=== PATIENT | female | born 1980 | race Caucasian/White ===

== ENCOUNTER → 2022-09-13 11:11 | Outpatient (CLI) | payer OTHER, SELFPAY ==
--- NOTE | ~2022-09-13 | US_ITS ---
Pelvic ultrasound. Clinical History: Irregular menses, menorrhagia Technique: Realtime transabdominal and transvaginal scanning of the pelvis was performed. Color flow Doppler and Doppler spectral analysis were performed. Findings: The uterus is anteverted. The endometrial stripe has a thickness of 14 mm. Questionable 1. 3 x 0.9 x 0.8 cm endometrial polyp. Small anterior wall fibroid measures 1.7 cm. The right ovary measures 2.4 x 2.9 x 2.9 cm. No significant right ovarian or adnexal mass is seen. The left ovary measures 3.2 x 3.1 x 3.1 cm. No significant left ovarian or adnexal mass is seen. There is no evidence of free fluid in the cul de sac. Impression: Questionable 1.3 cm endometrial polyp. Consider sonohysterogram and/or hysteroscopy for further evalu ation. Small uterine fibroid, as detailed above. Reviewed, dictated and finalized at [facility]. PROCESS ENGINEER Impression: Questionable 1.3 cm endometrial polyp. Consider sonohysterogram and/or hysteros copy for further evaluation. Small uterine fibroid, as detailed above.
== END ==
PROVIDERS: PCP Emergency Medicine; Visit Provider Emergency Medicine
DX: N92.6 Irregular menstruation, unspecified (principal)
CPT/HCPCS: 76830; 76856

== ENCOUNTER → 2022-09-25 11:48 | Outpatient (CLI) | payer OTHER, SELFPAY ==
--- NOTE | ~2022-09-25 | MM_ITS ---
EXAMINATION: MM screening lisa BI w sherri HISTORY: Screening mammogram TECHNIQUE: Craniocaudal and mediolateral oblique 3-D tomosynthesis images were obtained and synthetic 2-D images were generated. CAD analysis was submitted and interpreted. COMPARISON: None, baseline BREAST PARENCHYMAL COMPOSITION: There are scattered areas of fibroglandular density. FINDINGS: RIGHT BREAST: There is a possible mass in the anterior third of the lower inner breast near the nippl e. There is also a possible mass in the middle third of the slightly upper, slightly outer breast. LEFT BREAST: No suspicious mass, calcification, or architectural distortion are identified to suggest malignancy. IMPRESSION: 1. Possible right breast masses. 2. Additional mammographic views and possible breast ultrasound are recommended. BI-RADS Category 0: Incomplete: Needs additional imaging evaluation. Reviewed, dictated and finalized at location A. TER PROCESSED FILM IMPRESSION: 1. Possible right breast masses. 2. Additional mammographic views and possible breast ultrasound are recommended . BI-RADS Category 0: Incomplete: Needs additional imaging evaluation.
== END ==
PROVIDERS: PCP Emergency Medicine; Visit Provider Emergency Medicine
DX: Z12.31 Encounter for screening mammogram for malignant neoplasm of breast (principal); R92.8 Other abnormal and inconclusive findings on diagnostic imaging of breast
CPT/HCPCS: 77063; 77067

== ENCOUNTER 2022-10-12 08:12 | Outpatient (CLI) | payer OTHER, SELFPAY ==
--- NOTE | ~2022-10-12 | MMUS_ITS ---
EXAMINATION: MM diagnostic lisa RT w sherri, US breast RT limited HISTORY: Possible right breast masses on screening mammogram TECHNIQUE: Additional 3-D tomosynthesis images of the right breast were performed and synthetic 2-D i mages were generated. CAD analysis was submitted and interpreted. High resolution limited right breas t ultrasound was performed. COMPARISON: 09/25/2019 09/25/2022 FINDINGS: MAMMOGRAPHIC FINDINGS: No definite persistent masses are identified with spot compression views of the right breast. No susp icious calcification or architectural distortion are identified. ULTRASOUND: There is a 5 mm x 3 mm oval, circumscribed, parallel, hypoechoic mass with no posterior features or i nternal vascularity at the 6:00 location near the nipple. A 4 mm cyst is noted at the 11:00 location 2 cm from the nipple. There is also a 2 mm cyst at the 4:00 location 1 cm from the nipple. IMPRESSION: 1. Probably benign mass at the 6:00 location near the nipple on the right breast. 2. Recommend 6 month follow-up right diagnostic mammogram and ultrasound. BI-RADS category 3, probably benign findings. Reviewed, dictated and finalized at location A. ING DEPARTMENT SUPERVISOR IMPRESSION: 1. Probably benign mass at the 6:00 location near the nipple on the right breas t. 2. Recommend 6 month follow-up right diagnostic mammogram and ultrasound. BI-RADS category 3, probably benign findings.
== END 2022-10-12 08:13 ==
LOC: MICIMG 08:13
PROVIDERS: PCP Emergency Medicine; Visit Provider Emergency Medicine
DX: N63.10 Unspecified lump in the right breast, unspecified quadrant (principal)
CPT/HCPCS: 76642; 77061; 77065; G0279

== ENCOUNTER → 2023-04-25 08:42 | Outpatient (CLI) | payer OTHER, SELFPAY ==
--- NOTE | ~2023-04-25 | MMUS_ITS ---
EXAMINATION: MM diagnostic lisa RT w sherri, US breast RT complete HISTORY: Six-month follow-up of probably benign right breast mass at 6:00 near nipple TECHNIQUE: ML, MLO and CC full field and spot CC 3-D tomosynthesis images of the right breast were pe rformed and synthetic 2-D images were generated. CAD analysis was submitted and interpreted. High res olution complete right breast ultrasound examination gluteal 4 quadrants and subareolar area was perf ormed. COMPARISON: 10/12/2022 diagnostic right mammogram and limited right breast ultrasound 09/25/2022 bilateral screening mammogram BREAST PARENCHYMAL COMPOSITION: There are scattered areas of fibroglandular density. FINDINGS: MAMMOGRAPHIC FINDINGS: No suspicious mass or architectural distortion, malignant calcification, skin thickening or retractio n of the right breast or significant new or developing density since 10/12/2022 is detected. ULTRASOUND: 6:00 subareolar area: Circumscribed 2.3 x 3 mm hypoechoic lesion without internal vascularity or post erior shadowing; this is diminished in size since 10/12/2022, consistent with benign process 11:00 2 cm from nipple: Parallel circumscribed hypoechoic 1.9 x 4.2 mm sonolucency with through trans mission, no internal vascularity, likely a small cyst No other significant finding is noted. No suspicious mass or shadowing is detected. IMPRESSION: 1. Benign findings 2. Routine annual mammographic screening is recommended BI-RADS Category 2: Benign finding(s). Reviewed, dictated and finalized at location [facility]. IMPRESSION: 1. Benign findings 2. Routine annual mammographic screening is recommended BI-RADS Category 2: Benign finding(s).
== END ==
PROVIDERS: PCP Emergency Medicine; Visit Provider Emergency Medicine
DX: N63.10 Unspecified lump in the right breast, unspecified quadrant (principal)
CPT/HCPCS: 76641; 77061; 77065; G0279

== ENCOUNTER 2025-03-29 00:27 | Day surgery (SDC) | payer OTHER, SELFPAY ==
[2025-03-05 09:27] VITALS: BMI 28.3
--- OUTSIDE RECORDS SUMMARY | 2025-03-29 00:29 | XMS_ITS | Continuity of Care Document ---
Author Organization [facility] Address [address] [address] [place] [address] Phone Care Team Providers Care Toddler Guide Name Role Phone Mathieu Burch MD Unavailable Unavailable Allergies, Adverse Reactions, Alerts Substance Reaction Status Criticality No Known Allergies Active No Inform ation Medications Medication Instructions Dosage Effective Dates (start - stop) Status Comments Concerta 36 mg tablet,extended release take 1 Tablet by oral route every day in the morning 36 MG - Active Latuda 20 mg tablet take 1 tablet by ora l route every day with food (at least 350 calories) 20 MG - Active Effexor XR 150 mg capsule,extended release take 1 capsule by oral route every day 150 MG - Active Procedures Procedure Date OFFICE/OUTPATIENT VISIT, EST OFFICE/OUTPATIENT VISIT, EST OFFICE/OUTPATIENT VISIT, EST PREV VISIT, EST, AGE 40-64 OFFICE/OUTPATIENT VISIT, EST OFFICE/OUTPATIENT VISIT, EST OFFICE/OUTPATIENT VISIT, EST PREV VISIT, EST, AGE 40-64 OFFICE/OUTPATIENT VISIT, EST OFFICE/OUTPATIENT VISIT, EST OFFICE/OUTPATIENT VISIT, EST OFFICE/OUTPATIENT VISIT, EST OFFICE/OUTPATIENT VISIT, EST OFFICE/OUTPATIENT VISIT, EST OFFICE/OUTPATIENT VISIT, EST OFFICE/OUTPATIENT VISIT, EST OFFICE/OUTPATIENT VISIT, EST OFFICE/OUTPATIENT VISIT, EST PREV VISIT, EST, AGE 40-64 OFFICE/OUTPATIENT VISIT, EST OFFICE/OUTPATIENT VISIT, EST OFFICE/OUTPATIENT VISIT, EST PREV VISIT, EST, AGE 40-64 OFFICE/OUTPATIENT VISIT, EST OFFICE/OUTPATIENT VISIT, EST PREV VISIT, EST, AGE 40-64 OFFICE/OUTPATIENT VISIT, EST OFFICE/OUTPATIENT VISIT, EST PREV VISIT, NEW, AGE 18-39 PREV VISIT, EST, AGE 18-39 Advance Directives Directive Yes / No Effective Date File Name No Information Encounters Encounter Description Practice Location Reason(s) For Visit Diagnoses Date Provider Providers Copied on Encounter OFFICE/OUTPA TIENT VISIT, [facility], [address] [place], [address], tel:[phone] [facility] ADD (chief complaint) flushing1 (chief complaint) Attention deficitIrregular period 5 Marcin Murdock. [address], [facility] [place], [address] , [place]. tel:[phone] Referring Provider: Bernabe Ortiz [facility] [place], [address]. tel:[phone] OFFICE/OUTPA TIENT VISIT, EST [facility], [address] [place], [address], [place] tel:[phone] [facility] ADD (chief complaint) hot flash1 (chief complaint) anxiety1 (chief complaint) Attention deficitGeneralized Anxiety DisorderFlushingIrr egular period 5 Marcin Murdock. [address], [address] [place], [address] , [place]. tel:[phone] Referring Provider: Bernabe Ortiz [facility] [place], [address]. tel:[phone] OFFICE/OUTPA TIENT VISIT, [facility], [address], [place], [place], [address], [place] tel:[phone] [facility] ADD (chief complaint) Attention deficit Dec- 5 Marcin Murdock. [address], [address], [place], [place], [address] , [place]. tel:[phone] Referring Provider: Mathieu Burch, [address], [place], [place], [address]. tel:[phone] PREV VISIT, EST, AGE 40-64 [facility], [address], [place], [place], [address], [place] tel:[phone] [facility] physical (chief complaint) Encounter for general adult medical exam w abnormal findingsAttention deficitGeneralized Anxiety Disorder Nov- 0 5 Marcin Murdock. [address], [address], [place], [place], [address] , [place]. tel:[phone] Referring Provider: Mathieu Burch, [address], [place], [place], [address]. tel:[phone] OFFICE/OUTPA TIENT VISIT, [facility], [address], [place], [place], [address], [place] tel:[phone] [facility] anxiety1 (chief complaint) ADD (chief complaint) Attention deficitGeneralized Anxiety Disorder 4 Marcin Murdock. [address], [address], [place], [place], [address] , [place]. tel:[phone] Referring Provider: Mathieu Burch, [address], [place], [place], [address]. tel:[phone] OFFICE/OUTPA TIENT VISIT, [facility], [address], [place], [place], [address], [place] tel:[phone] [facility] ADD (chief complaint) anxiety1 (chief complaint) sinus1 (chief complaint) Attention deficitGeneralized Anxiety DisorderAcute sinusitisAllergic rhinitis due to pollenEncntr screen mammogram for malignant neoplasm of breast 4 Marcin Murdock. [address], [address], [place], [place], [address] , [place]. tel:[phone] Referring Provider: Mathieu Burch, [address], [place], [place], [address]. tel:[phone] PREV VISIT, EST, AGE 40-64 [facility], [address], [place], [place], [address], [place] [phone] [facility] physical (chief complaint) Encounter for general adult medical examination without abnormal findings 4 Marcin Murdock. [address], [address], [place], [place], [address] , [place]. tel:[phone] Referring Provider: Mathieu Burch, [address], [place], [place], [address]. tel:[phone] OFFICE/OUTPA TIENT VISIT, [facility], [address], [place], [place], [address], [place] tel:[phone] [facility] ADD (chief complaint) Attention deficit 4 Marcin Murdock. [address], [address], [place], [place], [address] , [place]. tel:[phone] Referring Provider: Mathieu Burch, [address], [place], [place], [address]. tel:[phone] OFFICE/OUTPA TIENT VISIT, [facility], [address], [place], [place], [address], [place] [phone] [facility] ADD (chief complaint) anxiety1 (chief complaint) Attention deficitGeneralized Anxiety Disorder 4 Marcin Murdock. [address], [place], [place], [address] , [place]. tel:[phone] Referring Provider: Mathieu Burch [address], [place], [place], [address]. tel:[phone] OFFICE/OUTPA TIENT VISIT, [facility], [address], [place], [address], [place] tel:[phone] [facility] ADD (chief complaint) breast1 (chief complaint) Lump in the right breastAttention deficit 4 Marcin Murdock. [address], [address], [place], [address] , [place]. tel:[phone] Referring Provider: Mathieu Burch [address], [place], [place], [address]. tel:[phone] OFFICE/OUTPA TIENT VISIT, [facility], [address], [place], [place], [address], [place] tel:[phone] [facility] ADD (chief complaint) Attention deficit 3 Marcin Murdock. [address], [address], [place], [place], [address] , [place]. tel:[phone] Referring Provider: Mathieu Burch, [address], [place], [place], [address]. tel:[phone] OFFICE/OUTPA TIENT VISIT, [facility], [address], [place], [address], [place] tel:[phone] [facility] ADD (chief complaint) anxiety1 (chief complaint) Attention deficitGeneralized Anxiety Disorder 3 Marcin Murdock. [address], [place], [place], [address] , [place]. tel:[phone] Referring Provider: Mathieu Burhc [address], [place], [place], [address]. tel:[phone] OFFICE/OUTPA TIENT VISIT, [facility], [address], [place], [place], [address], [place] tel:[phone] [facility] ADD (chief complaint) Attention deficit 3 Marcin Murdock. [address], [address], [place], [address] , [place]. tel:[phone] Referring Provider: Mathieu Burch, [address], [place], [place], [address]. tel:[phone] OFFICE/OUTPA TIENT VISIT, [facility], [address], [place], [place], [address], [place] tel:[phone] [facility] ADD (chief complaint) anxiety1 (chief complaint) breast1 (chief complaint) Attention deficitLump in the right breastGeneralized Anxiety Disorder 3 Marcin Murdock. [address], [address], [place], [address] , [place]. tel:[phone] Referring Provider: Bernabe Ortiz [address], [place], [place], [address]. tel:[phone] OFFICE/OUTPA TIENT VISIT, [facility], [address], [place], [address], [place] tel:[phone] [facility] ADD (chief complaint) breast1 (chief complaint) Attention deficitLump in the right breast 3 Marcin Murdock. [address], [address], [place], [place], [address] , [place]. tel:[phone] Referring Provider: Bernabe Ortiz [address], [place], [place], [address]. tel:[phone] OFFICE/OUTPA TIENT VISIT, [facility], [address], [place], [address], [place] tel:[phone] [facility] ADD (chief complaint) breast nodule1 (chief complaint) anxiety1 (chief complaint) Lump in the right breastAttention deficitGeneralized Anxiety Disorder 3 Marcin Murdock. [address], [place], [place], [address] , [place]. tel:[phone] Referring Provider: Bernabe Ortiz [address], [place], [place], [address]. tel:[phone] OFFICE/OUTPA TIENT VISIT, [facility], [address], [place], [place], [address], [place] tel:[phone] [facility] ADD (chief complaint) Attention deficit 3 Marcin Murdock. [address], [address], [place], [place], [address] , [place]. tel:[phone] Referring Provider: Bernabe Ortiz [address], [place], [place], [address]. tel:[phone] PREV VISIT, EST, AGE 40-64 [facility], [address], [place], [place], [address], [place] tel:[phone] [facility] physical (chief complaint) Encounter for general adult medical exam w abnormal findingsAttention deficitGeneralized Anxiety DisorderLump in the right breastPolyp of endometrium Dec- 3 Marcin Moreira [address], [address], [place], [place], [address] , [place]. tel:[phone] Referring Provider: Bernabe Ortiz [facility] [address], [place], [address]. tel:[phone] OFFICE/OUTPA TIENT VISIT, EST [facility], [address], [place], [place], [address], [place] tel:[phone] [facility] breat nodule1 (chief complaint) acne1 (chief complaint) period1 (chief complaint) Lump in the right breastAcneIrregular periodLeiomyoma of uterus 3 Marcin Moreira [address], [place], [place], [address] , [place]. tel:[phone] Referring Provider: Bernabe Ortiz [address], [place], [place], [address]. tel:[phone] OFFICE/OUTPA TIENT VISIT, EST [facility], [address], [place], [address], [place] tel:[phone] [facility] cyst (chief complaint) weight gain1 (chief complaint) period1 (chief complaint) acne1 (chief complaint) Irregular periodAcneCelluliti s of faceAbnormal weight gainEncounter for ot screening for malignant neoplasm of breast 2 Marcin Murdock. [address], [address], [place], [place], [address] , [place]. [phone] Referring Provider: Mathieu Burch, [address], [place], [place], [address]. tel:[phone] PREV VISIT, EST, AGE 40-64 [facility], [address], [place], [address], [place] tel:[phone] [facility] Physical (chief complaint) Encounter for general adult medical examination without abnormal findings 2 Marcin Murdock. [address], [address], [place], [place], [address] , [place]. [phone] Referring Provider: Bernabe Ortiz [address], [place], [place], [address]. tel:[phone] OFFICE/OUTPA TIENT VISIT, EST [facility], [address], [place], [place], [address], [place] tel:[phone] [facility] UTI1 (chief complaint) Urinary tract infection 1 Marcin Murdock. [address], [address], [place], [place], [address] , [place]. [phone] Referring Provider: Bernabe Ortiz [address], [place], [place], [address]. tel:[phone] OFFICE/OUTPA TIENT VISIT, EST [facility], [address], [place], [place], [address], [place] tel:[phone] [facility] knee pain1 (chief complaint) Pain in right kneeInternal derangement of right knee 0 Marcin Murdock. [address], [address], [place], [place], [address] , [place]. tel:[phone] Referring Provider: Bernabe Ortiz [address], [place], [place], [address]. tel:[phone] PREV VISIT, EST, AGE 40-64 [facility], [address], [place], [place], [address], [place] tel:[phone] [facility] Physical (chief complaint) Encntr for general adult medical exam w/o abnormal findings 0 Marcin Murdock. [address], [address], [place], [place], [address] , [place]. tel:[phone] Referring Provider: Bernabe Ortiz [address], [place], [place], [address]. tel:[phone] OFFICE/OUTPA TIENT VISIT, [facility], [address], [place], [place], [address], [place] tel:[phone] [facility] hermaturia 1 (chief complaint) Abd pain1 (chief complaint) swelling1 (chief complaint) HematuriaAbdominal painEdema Rylan- 3-201 7 Marcin Moreira [address], [address], [place], [place], [address] , [place]. tel:[phone] Referring Provider: Bernabe Ortiz [address], [place], [place], [address]. tel:[phone] OFFICE/OUTPA TIENT VISIT, [facility], [address], [place], [place], [address], [place] tel:[phone] [facility] abd pain1 (chief complaint) GERD w/o esophagitisAbdomina l pain Apr- 0-201 7 Marcin Murdock. [address], [address], [place], [place], [address] , [place]. tel:[phone] Referring Provider: Bernabe Ortiz [address], [place], [place], [address]. tel:[phone] PREV VISIT, NEW, AGE 18-39 [facility], [address], [place], [place], [address], [place] tel:[phone] [facility] Physical (chief complaint) Encntr for general adult medical exam w/o abnormal findings 0-201 6 Marcin Murdock. [address], [address], [place], [place], [address] , [place]. tel:[phone] Referring Provider: Mathieu Burch, [address], [place], [place], [address]. tel:[phone] PREV VISIT, EST, AGE 18-37 [facility], [address], [place], [place], [address], [place] tel:[phone] [facility] Physical (chief complaint) Dietary surveillance and counselingRoutine Medical ExamRoutine Medical Exam 3 Marcin Murdock. [address], [address], [place], [place], [address] , [place]. tel:[phone] Referring Provider: Mathieu Burch, [address], [place], [place], [address]. tel:[phone] Family History Family Member Type Diagnosis Age At Onset Sister Problem (finding) Anxiety Mother Problem (finding) Hypertension Mother Problem (finding) Anxiety Father Problem (finding) Anxiety Payers Payer name Insurance type Covered green party ID Justine stewart(s) Kristine [id number] Social History Type Description Quantity Date Captured Comments Alcohol Use Details No Caffeine Use Details Unknown Tobacco Use Status Ex-cigarette smoker 025 Smoking Status Former smoker Sex Female Vital Signs Date / Time: Height Weight BMI Pulse Rate Blood Pressure Temperature Respiratory Rate Body Surface Area Head Circumference BMI percentile Pulse Ox Inhaled Ox 10:05 AM 64.00 in 166.40 lbs 28.5 6 kg/m eter (2) 70 /min 120/80 mm[Hg] 98.0 F 16 /min Chief Complaint And Reason For Visit From encounter dated '03/15/2025 10:02'. ADD (chief complaint). Description: Patient has ADD. Patient has inattentive type. Patient feels scatterbrained. Patient feel poor focus and difficulty completing tasks. Patient states that Concerta is helping with symptoms. Patient feels more focused. Pt feels more energy. Patient denies any headache, dry mouth, headache, chest pain. Patient denies any appetite loss. flushing1 (chief complaint). Description: Pt has mild hot flash with irregular period her hormone does not suggest menopausal yet Plan Of Treatment Date Type Action Status Goal Tobacco cessation counseling completed Referral Ordered: COLONOSCOPY AND BIOPSY ordered Referral Ordered: MAMMOGRAM, ONE BREAST ordered Referral Ordered: MAMMOGRAM, ONE BREAST Right ordered Referral Ordered: US, PELVIC (NONOBSTETRIC); ordered Referral Ordered: MAMMOGRAM, SCREENING ordered Referral Ordered: Jose M Mendi[facility] : Orthopaedic Surgery (related to Internal derangement of right knee) ordered Referral Ordered: MRI JNT OF LWR EXTRE W/O DYE Right knee ordered Referral Ordered: Jose M Mendi[facility] : Orthopaedic Surgery (related to Encntr for general adult medical exam w/o abnormal findings) ordered Referral Ordered: US EXAM, EXTREMITY Right shoulder ordered Referral Referred To: Jose M Mendiola [address] [place] [address] DR ADAMS [address] [phone] Ordered: Referrals: [facility] : Orthopaedic Surgery. Jose M Mendiola. Evaluate and treat ordered Referral Ordered: CT ABDOMEN&PELVIS W/CONTRAST ordered Referral Ordered: US EXAM, ABDOM, COMPLETE ordered Appointment Priaynka Nickerson BOOKED History Of Present Illness Encounter Date Complaint History Of Prese nt Illness flushing1 Pt has mild hot flash with irregular period her hormone does not suggest menopausal yet ADD Patient has ADD. Patient has inattentive type. Patient feels scatterbrained. Patient feel poor focus and difficulty completing tasks. Patient states that Concerta is helping with symptoms. Patient feels more focused. Pt feels more energy. Patient denies any headache, dry mouth, headache, chest pain. Patient denies any appetite loss. anxiety1 Pt has chronic a nxiety and depression Pt is on Effexor and latuda and doing well Pt denies any suicidal or homicidal thought Pt denies any crying spells hot flash1 Pt has been havi ng hot flashes a lot recently. Pt feels marshall and insomnia Pt is interested in hormone check. Pt does not have period due to IUD ADD Pt has ADD. Pt d oing ok with concerta. Pt doing much better with concerta 36 mg. Pt denies any side effects ADD Patient has ADD. Patient has inattentive type. Patient feels scatterbrained. Patient feel poor focus and difficulty completing tasks. Patient states that Concerta is helping her symptoms but she feels that she needs higher dose. Pt states that the medication wears off around noon time. Patient feels more focused. Pt feels more energy. Patient denies any headache, dry mouth, headache, chest pain. Patient denies any appetite loss. physical Pt needs annual physical pt has chronic anxiety and depression with mood swings Pt is seeing psychiatrist and she is on effexor 150 mg and latuda now Pt is off abilify and she is doing ok Pt denies any suicidal or homicidal thought Pt denies any crying spells Pt has not on concerta for 6 months and she has been doing poorly with inability to focus and concentration. Pt also feels very distracted. Pt has not been able to function normally at home. Pt wants to get back on concerta. Pt states that her psychiatrist does not deal with ADD since [place]. ADD Patient has ADD. Patient has inattentive type. Patient feels scatterbrained. Patient feel poor focus and difficulty completing tasks. Patient states that Concerta is helping with symptoms. Patient feels more focused. Pt feels more energy. Patient denies any headache, dry mouth, headache, chest pain. Patient denies any appetite loss. anxiety1 Pt has chronic a nxiety and depression with mood swings .Pt is taking effexor 225 mg and abilify 10 mg daily and hre mood is better .Pt cecy any suicidal or homicidal thought Pt denies any crying spells. sinus1 Pt c/o acute ons et of severe sinus congestion with postnasal drainage and some dry cough and sneezing for several weeks Pt suffers from seasonal allergy. Pt c/o sinus pain Pt denies any fever or sob. Pt denies any sore throat ADD Patient has ADD. Patient has inattentive type. Patient feels scatterbrained. Patient feel poor focus and difficulty completing tasks. Patient states that Adderall is helping with symptoms. Patient feels more focused. Pt feels more energy. Patient denies any headache, dry mouth, headache, chest pain. Patient denies any appetite loss. anxiety1 Pt has chronic a nxiety and depression Pt takes Effexor and abilify and she still feels more depressed lately. Pt denies any suicidal or homicidal thought Pt denies any crying spells Pt increase abilify to 10 mg last month which helped slightly Pt is in the process of find a new psychiatrist. physical Pt needs annual physical pt has chronic anxiety and depression and mood swings. Pt takes effexor and abilify and she has not been doing well pt feels more depressed and more anxious and mood swings and she has been having crying spells Pt denies any suicidal or homicidal thought Pt has ADD pt doing ok with concerta Pt used to see psychiatrist ADD Patient has ADD. Patient has inattentive type. Patient feels scatterbrained. Patient feel poor focus and difficulty completing tasks. Patient states that Concerta is helping with symptoms. Patient feels more focused. Pt feels more energy. Patient denies any headache, dry mouth, headache, chest pain. Patient denies any appetite loss. ADD Patient has ADD. Patient has inattentive type. Patient feels scatterbrained. Patient feel poor focus and difficulty completing tasks. Patient states that concerta is helping with symptoms. Patient feels more focused. Pt feels more energy. Patient denies any headache, dry mouth, headache, chest pain. Patient denies any appetite loss. anxiety1 Pt has chronic a nxiety and depression Pt takes effexor and abilify and doing ok Pt denies any suicidal or homicidal thought Pt denies any crying spells ADD Patient has ADD. Patient has inattentive type. Patient feels scatterbrained. Patient feel poor focus and difficulty completing tasks. Patient states that Concerta is helping with symptoms. Patient feels more focused. Pt feels more energy. Patient denies any headache, dry mouth, headache, chest pain. Patient denies any appetite loss. breast1 pt has history o f benign right breast nodule. Pt denies any breast pain, nodule and redness or warmth or drainage ADD Patient has ADD. Patient has inattentive type. Patient feels scatterbrained. Patient feel poor focus and difficulty completing tasks. Patient states that Concerta is helping with symptoms. Patient feels more focused. Pt feels more energy. Patient denies any headache, dry mouth, headache, chest pain. Patient denies any appetite loss. anxiety1 Pt has chronic a nxiety and depression and she is doing well with effexor and abilify Pt denies any suicidal or homicidal thought Pt denies any crying spells ADD Patient has ADD. Patient has inattentive type. Patient feels scatterbrained. Patient feel poor focus and difficulty completing tasks. Patient states that concerta is helping with symptoms. Patient feels more focused. Pt feels more energy. Patient denies any headache, dry mouth, headache, chest pain. Patient denies any appetite loss. ADD Patient has ADD. Patient has inattentive type. Patient feels scatterbrained. Patient feel poor focus and difficulty completing tasks. Patient states that Concerta is helping with symptoms. Patient feels more focused. Pt feels more energy. Patient denies any headache, dry mouth, headache, chest pain. Patient denies any appetite loss. ADD Patient has ADD. Patient has inattentive type. Patient feels scatterbrained. Patient feel poor focus and difficulty completing tasks. Patient states that Concerta is helping with symptoms. Patient feels more focused. Pt feels more energy. Patient denies any headache, dry mouth, headache, chest pain. Patient denies any appetite loss. anxiety1 Pt has chronic a nxiety and depression Pt takes effexor and abilify and doing well. Pt denies any suicidal or homicidal thought pt denies any crying spells breast1 Pt has right kieran ast nodule Pt denies any palpable breast nodule or pain or retraction or discoloration or redness, warmth, drainage Pt had right diagnostic mammo and ultrasound which was benign last month ADD Patient has ADD. Patient has inattentive type. Patient feels scatterbrained. Patient feel poor focus and difficulty completing tasks. Patient states that concerta is helping with symptoms. Patient feels more focused. Pt feels more energy. Patient denies any headache, dry mouth, headache, chest pain. Patient denies any appetite loss. breast1 Pt has right kieran ast nodule on screening mammogram Pt denies any palpable breast nodule or pain or redness or warmth. Pt denies any breast retraction . breast nodule1 Pt has right kieran ast nodule on screening mammogram Pt denies any palpable breast nodule or pain or redness or warmth. Pt denies any breast retraction . ADD Pt has ADD. Pt d oing very well with concerta 27 mg daily Pt feels more focused with more energy Pt no longer feels fatigue or crash feeling around early afternoon Pt denies any side effects from concerta anxiety1 Pt has chronic a nxiety and depression pt takes effexor and abilify and doing well Pt denies any suicidal or homicidal thought Pt denies any crying spells ADD Pt has ADD, inat tentive type Pt doing well with concerta. Pt feels more focused Pt feels more energy. Pt denies any side effects Pt denies any appetite loss or weight loss. Pt also feels that concerta does not work long enough and only last for 4-5 hours. physical Pt needs annual physical. Pt has chronic anxiety and depression Pt takes effexor and abilify and she is doing ok but she still feels rather anxious and she feels very easily distracted and not able to focus on any tasks. Pt feels overwhelmed all the time which prohibit her from working and dealing with daily chores pt has been struggling with above issue since high school. her children recently tested positive for ADD and she feels that her symptoms are very close to their symptoms Pt saw dianetic counselor recently and she had hysteroscopy by [employer] with benign polyp and she underwent D/C and she has IUD now Pt denies any heavy period. period1 Pt is perimenopa usal. Pt has chivo with [employer] in 3 weeks. Pt has fibroid and endometrial polyps acne1 Pt has intermitt ent cystic acne Pt denies any pain. Pt had lab done which showed normal T level. breat nodule1 Pt has right kieran ast nodule on screening mammo Pt denies any breast issue or pain or palpable nodule weight gain1 Pt has been gain ing weight. Pt is not very physically active period1 Pt has been havi ng irregular period and heavy bleeding and dysmenorrhea for 2 years. Pt bleeds heavily for two weeks and she has heavy period every months. Pt also has mild painful intercourse as well cyst pt c/o painful c yst in front of right ear for several months but started to get bigger and painful during last week and she notices mild facial swelling right side around the area ,Pt denies any headache Pt denies any toothache. Pt denies any fever, chill. Pt denies any skin injury or bug bite acne1 Pt has chronic c ystic acne on face which is painful sometimes. Pt cecy any hirsutism and alopecia Physical Pt needs annual physical. Pt has chronic anxiety and depression and manic depressive disorder. Pt sees psychiatrist who gives her abilify and effexor. Pt doing well on above meds but her psychiatrist retired and she can not find a new psychiatrist. Pt denies any suicidal or homicidal thought Pt denies any crying spells Pt has stable mood. Pt needs abilify and effexor refilled. Pt denies any other complaints. UTI1 Pt c/o UTI sympt oms with dysuria, frequency, urgency since 5 days ago. No fever or flank pain. Pt notices mild pelvic pressure Pt denies any nausea, vomiting . knee pain1 Pt states that s he was sprinting 3 days ago and she felt acute onset of pain right knee with acute swelling of right knee afterward. Pt feels that her right knee wobbles a little and she hyper extended it. Pt states that she feels that her right knee is weak and she feels that it gives away easily pt denies any redness or warmth. Pt denies any redness or warmth. Pt notices some bruising around medial and on top of right patella also. Pt denies any calf pain. Pt has been using right knee brace currently. Pt states that she has hard time extending right knee completely.. Pt feels that her right knee is weak and wobbles Physical Pt needs annual physical. pt has intermittent right shoulder pain for several years due to history of boxing .Pt notices right sudden onset of right shoulder pain and weakness when she tried to lift a 15 pounds weight last Saturday. Pt has 7/10 sharp pain right shoulder. Her right shoulder pain is worse with movement . Pt notices some numbness around right shoulder area with mild radiation to right anterior elbow. Pt denies any right arm numbness or tingling Pt denies any right hand weakness pt denies any abdominal pain. pt denies any urinary symptoms. Pt states that she no longer has hematuria on lab from dianetic counselor. Abd pain1 Pt denie any rig ht upper quadrant pain or nausea or gERD anymore. Pt did take protonix for 10 days and symptoms resolved and she is not taking protonix anymore Pt also did not do ultrasound or upper GI. Pt denies any symptoms now. Pt has been eating better without any spicy food, caffine, soda, etc. Pt has chornic right flank pain at least 2-3 years. Pt denies any fever, chill, Pt states that the pain is on flank, not abdomen area. Pt states the pain is dull. Pt was told she had multiple work up in the past without diagnosis swelling1 Pt states that s he had diffuse swelling all over body 4 weeks ago. Pt think that she gained 10 pouds of water weight. Pt states that she woke up in the morning and she notices water retention both hand, arm and also lower extremity. Pt denies any sob or chest pain. Pt did consume more salt around that time. Pt states that swelling went away after drinking lemon water. Pt states that the swellig lasted almost 7 days hermaturia1 Pt has recurrent hemaruria. Pt denies any UTI symptoms. Pt denies any frequency or urgency. Pt told me she seen urology 1-2 years ago and she had negative Ct scan. but she could not tell me she had a cysto or not. Pt states that she had a bladder sling placed last year due to incontinence Pt denies any urinary freuqency or urgency or incontinence abd pain1 Pt c/o chronic i ntermittent right upper quadrant pain and tightness feeling for two years. Pt also has nausea and vomiting after greasy food and also alcohol or sweet food. Pt had EGD 13 years ago which was negative. Pt also has non bloody diarrhea when she has right upper quadrant pain. Pt states that she has heartburn daily. Pt states that she vomits every morning and she can taste acid in her throat. Pt denies any weight loss. Pt feels nausea all the time, especailly in the morning. Pt not sure if eating makes it worse or better. Physical Pt needs annual physical. pt c/o severe sinus congestion, right ear pain and sore throat with productive coughing for one week. Pt failed OTC meds. her is sick also. Pt denies any fever. Pt denies any recent travel Instructions Date Instruction Additional Infor bessie Dietary counseling Related to Di etary surveillance counseling Decrease caloric intake Related to Dietary surveillance counseling Assessments Type Assessment Date assessment Attention deficit assessment Irregular period Mental Status Date Cognitive Assessment Orientation - [place] ed to time, place, person, situation.
--- OUTSIDE RECORDS SUMMARY | 2025-03-29 00:29 | XMS_ITS | Clinical Summary ---
Author Organization [facility] Address [address] [place] [address] Care Team Providers Care Sales Activity Manager Name Role Phone Unavailable Primary Care Provider Unavailabl e Source Comments [facility],non-owned Affiliates and Associated Physician Practices is amultiple site organization consisting of ambulatory clinics and hospital sitesin [place], [place], [place] and [place]. This disclosure is being madepursuant to the Care Everywhere program and may not contain all information available regarding this patient. Last updated 18.[facility] Allergies No known active allergies Medications * Be aware that medications may not be up to date on this document. Alwaysverify current medications with the patient. oxyCODONE-acetam inophen (PERCOCET) 5-325 MG tablet Take 1 Tab by mouth every 6 hours as needed for Pain 40 Tab 0 04/12/2016 Active ibuprofen (MOTRIN) 600 MG tablet Take 1 Tab by mouth every 6 hours as needed for Pain 90 Tab 1 04/12/2016 Active docusate sodium (COLACE) 100 MG capsule Take 1 Cap by mouth 2 times daily 60 Cap 1 04/12/2016 Active Social History Tobacco Use Types Packs/Day Years Used Date Smoking Tobacco: Never Tobacco Cessation:Counseling Given: No Alcohol Use Standard Drinks/Week Comments No 0 (1 standard drink = 0.6 oz pur e alcohol) Comments No Sex and Gender Information Value Date Recorded Sex Assigned at Not on file Legal Sex Female 8:37 AM CDT Gender Identity Not on file Sexual Orientation Not on file Last Filed Vital Signs Vital Sign Reading Time Taken Comments Blood Pressure 118/76 06/11/2016 12:33 PM CDT Pulse 56 04/12/2016 1:22 PM CDT Temperature 36.9 C (98.4 F) 04/12/2016 1:22 PM CDT Respiratory Rate 12 04/12/2016 1:22 PM CDT Oxygen Saturation 100% 04/12/2016 1:22 PM CDT Inhaled Oxygen Concentration - - Weight 70.8 kg (156 lb) 06/11/2016 12:33 PM CDT Height 162.6 cm (5' 4) 06/11/2016 12:33 PM CDT Body Mass Index 26.78 06/11/2016 12:33 PM CDT Plan of Treatment Health Maintenance Due Date Last Done Comments COLOGUARD (AGES 45-75) - COL ON CA SCREENING 1978 COLON MONITORING 1978 COLONOSCOPY - COLON CA SCREENING 1978 CT COLONOGRAPHY - COLON CA SCREENING 1978 Colorectal Cancer Screening 1978 FIT - COLON CA SCREENING 1978 FLEX SIG - COLON CA SCREENING 1978 LIPID TESTING 1978 MAMMOGRAM 1978 HIV SCREENING 1993 HEPATITIS C SCREENING 01/11/1996 DTAP/TDAP/TD VACCINES (1 - Tdap) 1997 HEPATITIS B VACCINE (1 of 3 - 19+ 3-dose series) 1997 PAP SMEAR 1999 COVID-19 VACCINE ( - 2023-2 5 season) 2024 DEPRESSION SCREENING 09/23/2024 INFLUENZA VACCINE (Season Ended) 2025 ZOSTER VACCINE (1 of 2) 01/16/2028 HIB VACCINE Aged Out No longer eligi ble based on patient's age to complete this topic HPV VACCINE Aged Out No longer eligi ble based on patient's age to complete this topic MENINGOCOCCAL (Group B) VACC INE SHARED DECISION-MAKING Aged Out No longer eligibl e based on patient's age to complete this topic MENINGOCOCCAL GROUPS A/C/Y/W VACCINE Aged Out No longer eligible b ased on patient's age to complete this topic PNEUMOCOCCAL VACCINE Aged Out No long er eligible based on patient's age to complete this topic Medical Devices Implanted Type Area Upholsterer Limousine [employer] Hearse Device Identifier Shelf Expiration Date Model / Serial / Lot Dev Obtryx Ii Halo Sgl Un Implanted:Qty: 1 on 04/12/2016 by Lloyd Arechiga MD at [facility] 02/09/2019 [id number] / / [id number] [place] [address] [employer] MEDICA[employer] LIMITED BENEFIT - [place] [facility]
--- OUTSIDE RECORDS SUMMARY | 2025-03-29 00:29 | XMS_ITS | Continuity of Care Document ---
Author Organization [facility] Address [address] [facility] [address] [place] [address] Phone Care Team Providers Care Physicians Assistant Name Role Phone Pradhan PT,MPT,ATC, Mio Unavailable Unavai lable Procedures Procedure Date Free Assessment Therapeutic Exercise Therapeutic Activities Progress Note Therapeutic Activities Therapeutic Exercise Therapeutic Exercise Therapeutic Activities Therapeutic Activities Therapeutic Exercise Therapeutic Activities Therapeutic Exercise Therapeutic Activities Therapeutic Exercise Therapeutic Activities Therapeutic Exercise Therapeutic Activities Therapeutic Exercise Therapeutic Activities Therapeutic Exercise Therapeutic Activities Therapeutic Exercise Therapeutic Activities Therapeutic Exercise Progress Note Therapeutic Activities Therapeutic Exercise Therapeutic Activities Therapeutic Exercise Therapeutic Exercise Therapeutic Activities Therapeutic Exercise Therapeutic Activities Therapeutic Exercise Therapeutic Activities Therapeutic Activities Therapeutic Exercise Therapeutic Exercise Therapeutic Activities Neuromuscular Re-Ed Therapeutic Activities Neuromuscular Re-Ed Therapeutic Activities Neuromuscular Re-Ed Therapeutic Activities Therapeutic Activities Neuromuscular Re-Ed Therapeutic Activities Neuromuscular Re-Ed Progress Note Neuromuscular Re-Ed Therapeutic Activities Therapeutic Activities Therapeutic Exercise Neuromuscular Re-Ed Therapeutic Activities Neuromuscular Re-Ed Therapeutic Exercise Therapeutic Exercise Neuromuscular Re-Ed Therapeutic Activities Therapeutic Activities Neuromuscular Re-Ed Therapeutic Activities Therapeutic Exercise Neuromuscular Re-Ed Therapeutic Exercise Neuromuscular Re-Ed Therapeutic Activities Therapeutic Activities Therapeutic Exercise Neuromuscular Re-Ed Therapeutic Exercise Neuromuscular Re-Ed Therapeutic Activities Neuromuscular Re-Ed Therapeutic Activities Therapeutic Exercise PT Evaluation Moderate Complexity Therapeutic Activities Neuromuscular Re-Ed Therapeutic Activities Neuromuscular Re-Ed Therapeutic Exercise Therapeutic Activities Neuromuscular Re-Ed Therapeutic Exercise Therapeutic Activities Therapeutic Exercise Neuromuscular Re-Ed Therapeutic Activities Neuromuscular Re-Ed Therapeutic Exercise Therapeutic Activities Neuromuscular Re-Ed Therapeutic Exercise Therapeutic Activities Neuromuscular Re-Ed Therapeutic Exercise Hot or Cold Pack Therapeutic Activities Neuromuscular Re-Ed Therapeutic Exercise Hot or Cold Pack Therapeutic Activities Neuromuscular Re-Ed Therapeutic Exercise Hot or Cold Pack Therapeutic Activities Therapeutic Exercise Hot or Cold Pack Therapeutic Activities Therapeutic Exercise Hot or Cold Pack Therapeutic Activities Neuromuscular Re-Ed Therapeutic Exercise Hot or Cold Pack Therapeutic Activities Neuromuscular Re-Ed Therapeutic Exercise Therapeutic Activities Hot or Cold Pack Therapeutic Exercise Therapeutic Activities Therapeutic Exercise Hot or Cold Pack Progress Note Therapeutic Activities Therapeutic Exercise Hot or Cold Pack Therapeutic Activities Therapeutic Exercise Hot or Cold Pack Neuromuscular Re-Ed Therapeutic Exercise Hot or Cold Pack Neuromuscular Re-Ed Therapeutic Exercise Hot or Cold Pack Neuromuscular Re-Ed Hot or Cold Pack Therapeutic Exercise PT Evaluation Moderate Complexity Therapeutic Exercise Advance Directives Directive Yes / No Effective Date File Name No Information Encounters Encounter Description Practice Location Reason(s) For Visit Diagnoses Date Provider Providers Copied on Encounter [facility], [place], [place], [address], [place] tel:[phone] O'Brien No Information 2 Lorne [place], [place]. Referring Provider: Physician Screen. [facility], [place], [place], [id number], tel:[phone] O'Brien No Information 1 Lorne Elena , [place], [place]. Referring Provider: Jose M Mendiola, [address] [facility] [address], [place], [address]. tel:[phone] [facility], [address], [place], [place], [address], [place] tel:[phone] O'Brien No Information 1 Lorne Elena , [place], [place]. Referring Provider: Jose M Mendiola, [address] [facility] [address], [place], [address]. tel:[phone] [facility], [address], [place], [place], [address], [place] tel:[phone] O'Brien No Information 1 Lorne Elena , [place], [place]. Referring Provider: Jose M Mendiola, 4 [facility] [address] [facility] [facility] [facility] [address], [place], [address]. tel:[phone] [facility], [place], [place], [address], [place] tel:[phone] O'Brien No Information 1 Lorne Lieberman. , [place], [place]. Referring Provider: Jose M Mendiola, 4 [facility] [address], [place], [address]. tel:[phone] [facility], [place], [place], [address], [place] tel:[phone] O'Brien No Information 1 Lorne Elena , [place], [place]. Referring Provider: Jose M Mendiola, 4 [facility] [address], [place], [address]. tel:[phone] [facility], [place], [place], [address], [place] tel:[phone] O'Brien No Information 1 Lorne Elena , [place], [place]. Referring Provider: Jose M Mendiola, [address] [facility] [address], [place], [address]. tel:[phone] [facility], [address], [place], [place], [address], [place] tel:[phone] O'Brien No Information 1 Lorne Elena , [place], [place]. Referring Provider: Jose M Mendiola, 4 [facility] [address] [facility] [facility] [address], [place], [address]. tel:[phone] [facility], [place], [place], [address], [place] tel:[phone] O'Brien No Information 1 Lorne Elena , [place], [place]. Referring Provider: Jose M Mendiola, 4 [facility] [address] [facility] [facility] [address], [place], [address]. tel:[phone] [facility], [address], [place], [place], [address], [place] tel:[phone] O'Brien No Information 1 Lorne Elena , [place], [place]. Referring Provider: Jose M Mendiola, 4 [facility] [address] [facility] [facility] [address], [place], [address]. tel:[phone] [facility], [place], [place], [address], [place] tel:[phone] O'Brien No Information 1 Lorne Elena , [place], [place]. Referring Provider: Jose M Mendiola, 4 [facility] [address] [facility] [facility] [address], [place], [address]. tel:[phone] [facility], [place], [place], [address], [place] tel:[phone] O'Brien No Information 1 Lrone Lieberman. , [place], [place]. Referring Provider: Jose M Mendiola, 4 [facility] [address] [facility] [address], [place], [address]. tel:[phone] [facility], [place], [place], [address], [place] tel:[phone] O'Brien No Information 1 Lorne Lieberman , [place], [place]. Referring Provider: Jose M Mendiola, 4 [facility] [address] [facility] [address], [place], [address]. tel:[phone] [facility], [address], [place], [place], [address], [place] tel:[phone] O'Brien No Information 1 Lorne [place] , [place], [place]. Referring Provider: Jose M Mendiola, 4 [facility] [address] [facility] [facility] [address], [place], [address]. tel:[phone] [facility] [address], [place], [place], [address], [place] tel:[phone] O'Brien No Information 1 Lorne [place] , [place], [place]. Referring Provider: Jose M Mendiola, 4 [facility] [address] [facility] [address], [place], [address]. tel:[phone] [facility], [address], [place], [place], [address], [place] tel:[phone] O'Brien No Information 1 Alysha Sidhu. . Referring Provider: Jose M Mendiola, 4 [facility] [address] [facility] [address], [place], [address]. tel:[phone] [facility] [address], [place], [place], [address], [place] tel:[phone] O'Brien No Information 0 Demetrius Torres. . Referring Provider: Jose M Mendiola, 4 [facility] [address], [place], [address]. tel:[phone] [facility], [address], [place], [place], [address], [place] tel:[phone] O'Brien No Information 0 Dexter Vega. . Referring Provider: Jose M Mendiola, [address] [facility] [address], [place], [address]. tel:[phone] [facility], [address], [place], [place], [address], [place] tel:[phone] O'Brien No Information Aug- 0 [facility]. . Referring Provider: Jose M Mendiola, 4 [facility] [address] [facility] [address], [place], [address]. tel:[phone] [facility], [address], [place], [place], [address], [place] tel:[phone] O'Brien No Information Aug- 0 Lorne Son. , [place], [place]. Referring Provider: Jose M Mendiola, 4 [facility] [address] [facility] [address], [place], [address]. tel:[phone] [facility] [address], [place], [place], [address], [place] tel:[phone] O'Brien No Information Aug- 0 Lorne Son. , [place], [place]. Referring Provider: Jose M Mendiola, 4 [facility] [address] [facility] [address], [place], [address]. tel:[phone] [facility], [address], [place], [place], [address], [place] tel:[phone] O'Brien No Information 0 Lorne Son. , [place], [place]. Referring Provider: Jose M Mendiola, 4 [facility] [address], [place], [address]. tel:[phone] [facility] [address], [place], [place], [address], [place] tel:[phone] O'Brien No Information Dec- 0 0 Lonre Son. , [place], [place]. Referring Provider: Jose M Mendiola, [address] [facility] [address], [place], [address]. tel:[phone] [facility], [address], [place], [place], [address], [place] tel:[phone] O'Brien No Information Aug-0 7- 0 Lorne Son. , [place], [place]. Referring Provider: Jose M Mendiola, [address] [facility] [address] [facility] [address], [place], [address]. tel:[phone] [facility], [address], [place], [place], [address], [place] tel:[phone] O'Brien No Information Aug-0 3-202 0 Lorne Son. , [place], [place]. Referring Provider: Jose M Mendiola, 4 [facility] [address] [facility] [address], [place], [address]. tel:[phone] [facility] [address], [place], [place], [address], tel:[phone] O'Brien No Information Nov-3 0-202 0 Dexter Jones . Referring Provider: Jose M Mendiola, 4 [facility] [address] [facility] [address], [place], [address]. tel:[phone] [facility], [address], [place], [place], [address], [place] tel:[phone] O'Brien No Information 2 - 0 Lorne Son. , [place], [place]. Referring Provider: Jose M Mendiola, 4 [facility] [address] [facility], [place], [address]. tel:[phone] [facility], [address], [place], [place], [address], [place] tel:[phone] O'Brien No Information 0 Lorne Son. , [place], [place]. Referring Provider: Jose M Mendiola, [address] [facility] [address] [facility] [address], [place], [address]. tel:[phone] [facility], [address], [place], [place], [address], [place] tel:[phone] O'Brien No Information 1 6- 0 Lorne Son. , [place], [place]. Referring Provider: Jose M Mendiola, [address] [facility] [address], [place], [address]. tel:[phone] [facility] [address], [place], [place], [address], [place] tel:[phone] O'Brien No Information Nov-1 2-202 0 Pradhan Mio. , [place], [place]. Referring Provider: Jose M Mendiola, [address] [facility] [address] [facility] [address], [place], [address]. tel:[phone] [facility], [address], [place], [place], [address], [place] tel:[phone] O'Brien No Information Nov-0 9-202 0 Pradhan Mio. , [place], [place]. Referring Provider: Jose M Mendiola, 4 [facility] [address] [facility] [address], [place], [address]. tel:[phone] [facility] [address], [place], [place], [address], [place] tel:[phone] O'Brien No Information Nov-0 5-202 0 Pradhan Mio. , [place], [place]. Referring Provider: Jose M Mendiola, [address] [facility] [address] [facility] [address], [place], [address]. tel:[phone] [facility] [address], [place], [place], [address], [place] tel:[phone] O'Brien No Information Nov-0 2-202 0 Pradhan Mio. , [place], [place]. Referring Provider: Jose M Mendiola, [address] [facility] [address], [place], [address]. tel:[phone] [facility] [address], [place], [place], [address], [place] tel:[phone] O'Brien No Information Oct-3 0-202 0 Pradhan Mio. , [place], [place]. Referring Provider: Jose M Mendiola, [address] [facility] [address], [place], [address]. tel:[phone] [place] [address], [place], [place], [address], [place] tel:[phone] O'Brien No Information 0 Pradhan Mio. , [place], [place]. Referring Provider: Jose M Mendiola, [address] [place] [address] [address] [place], [address]. tel:[phone] [facility], [place], [place], [address], [place] tel:[phone] O'Brien No Information 2 0 Pradhan Mio. , [place], [place]. [facility], [place], [place], [address], [place] tel:[phone] O'Brien No Information 2 0 Pradhan Mio. , [place], [place]. [facility], [place], [place], [address], [place] tel:[phone] O'Brien No Information 2 0- 0 Pradhan Mio. , [place], [place]. [facility], [place], [place], [address], [place] tel:[phone] O'Brien No Information Dec- 0 Pradhan Mio. , [place], [place]. [facility], [place], [place], [address], [place] tel:[phone] O'Brien No Information Dec-1 3-202 0 Pradhan Mio. , [place], [place]. [facility], [place], [place], [address], [place] tel:[phone] O'Brien No Information Apr-1 0-202 0 Threlkeld Aissatou. . [facility], [place], [place], [address], [place] tel:[phone] O'Brien No Information Apr-0 8-202 0 Threlkeld Aissatou. . [facility], [place], [place], [address], [place] tel:[phone] O'Brien No Information Apr-0 3-202 0 Threlkeld Aissatou. . [facility], [place], [place], [address], [place] tel:[phone] O'Brien No Information Apr-0 1-202 0 Threlkeld Aissatou. . [facility], [place], [place], [address], [place] tel:[phone] O'Brien No Information Mar-2 7-202 0 Threlkeld Aissatou. . [facility], [place], [place], [address], [place] tel:[phone] O'Brien No Information Mar-2 5-202 0 Threlkeld Aissatou. . [facility], [place], [place], [address], tel:[phone] O'Brien No Information Mar-1 8-202 0 [place], [place]. [facility], [place], [place], [address], [place] tel:[phone] O'Brien No Information Mar-1 3-202 0 Threlkeld Aissatou. . [facility], [place], [place], [address], [place] tel:[phone] O'Brien No Information Mar-1 1-202 0 Threlkeld Aissatou. . [facility], [place], [place], [address], [place] tel:[phone] O'Brien No Information Mar-0 6-202 0 Threlkeld Aissatou. . [facility], [place], [place], [address], [place] tel:[phone] O'Brien No Information Mar-0 4-202 0 Threlkeld Aissatou. . [facility], [place], [place], [address], [place] tel:[phone] O'Brien No Information 0 Threlkeld Aissatou. . [facility], [place], [place], [address], tel:[phone] O'Brien No Information 0 Threlkeld Aissatou. . [facility], [place], [place], [address], tel:[phone] O'Brien No Information 0 Threlkeld Aissatou. . [facility], [place], [place], [address], tel:[phone] O'Brien No Information 0 Alysha Sidhu. . Family History Family Member Type Diagnosis Age At Onset No Information Payers Payer name Insurance type Covered green party ID Authoriza tiche(s) No Information Social History Type Description Quantity Date Captured Comments Sex Female Smoking Status No Information Chief Complaint And Reason For Visit No Information Reason For Referral Reason For Referral No Information History Of Present Illness Encounter Date Complaint History Of Prese nt Illness No Information Functional Status Date Functional Assessmen t No Information Instructions Date Instruction Ap la Giving encouragement to exercise Related to Overweight Assessments Type Assessment Date No Information Patient Care Teams Name Effective Dates (start - stop) Status Members No Information
--- OUTSIDE RECORDS SUMMARY | 2025-03-29 00:29 | XMS_ITS | Encounter Summary ---
Author Organization [facility] Address [address] [place] [address] Care Team Providers Care [employer] Teacher Name Role Phone Unavailable Primary Care Provider Unavailabl e Encounter Details Date Type Department Care Team (Late st Contact Info) Description 11/29/2022 Lab Requisition [facility] Lab [address] [facility] [address] [facility] [place] [id number] Hubert Morse MD [address] [place] [address] Social History Tobacco Use Types Packs/Day Years Used Date Smoking Tobacco: Never Alcohol Use Standard Drinks/Week Comments No 0 (1 standard drink = 0.6 oz pur e alcohol) Comments No Sex and Gender Information Value Date Recorded Sex Assigned at Not on file Legal Sex Female 8:37 AM CDT Gender Identity Not on file Sexual Orientation Not on file documented as of this encounter Plan of Treatment Not on file documented as of this encounter Procedures Procedure Name Priority Date/Time Associated Diagnosis Comments DERMATOPATHOLOGY Routine 11/29/2022 12:0 0 AM BILLING CLERK documented in this encounter Results * DERMATOPATHOLOGY (11/29/2022 12:00 AM BILLING CLERK) Case Report Dermatopathology Report Case: [id number] Authorizing Provider: Hubert Morse MD Collected: 11/29/2022 12:00 AM Ordering Location: [facility] Lab Received: 11/29/2022 04:43 PM Pathologist: Priyanka Christian MD Specimen: Skin, right pre-auricular 3 11:03 AM T DERMATOPATHOLOGY LABORATORY Final Diagnosis Specimen A. SKIN, right pre-auricular: RUPTURED EPIDERMOID CYST (L72.0) 3 11:[address] [facility] DERMATOPATHOLOGY LABORATORY at 1103 CDT Clinical History Cyst Path#[id number] Check margins 3 11:03 AM T DERMATOPATHOLOGY LABORATORY Gross Description Specimen A: Received is one formalin filled container labeled with the patient's name and designated right pre-auricular. The specimen consists of a 15x7x8 mm piece of skin. The margin is inked green. The specimen is bisected lengthwise and submitted in 1 cassette. Jar 0. 3 11:[address] [facility] DERMATOPATHOLOGY LABORATORY Microscopic Description Specimen A. SKIN, right pre-auricular: Within the dermis, there is an infiltrate composed of lymphocytes and histiocytes, including multinucleated type giant cells. Some histiocytes contain flakes of material consistent with keratin. 11:[address] [facility] DERMATOPATHOLOGY LABORATORY Disclaimer An external and internal positive and negative controls are appropriate for the histochemical, immunohistochemical and immunofluorescence stain(s) in this case (if any), except where stated explicitly. The performance characteristics of the stain(s) cited in this report were developed and its performance characteristic determined by the Dermatopathology Laboratory at [facility], directed by Dr. García Adamson. These tests need not be, and therefore are not, approved by the [place] Food and Drug Administration. The tests are used for clinical purposes. Billing Codes Specimen Charges Stain Charges 05004 1 3 11:03 AM CDT DERMATOPATHOLOGY LABORATORY Embedded Images 3 11:03 AM T DERMATOPATHOLOGY LABORATORY Pathology/Cytolog y TISSUE SPECIMEN FROM SKIN / Unknown 11/29/2022 11/29/2022 4:43 PM BILLING CLERK us Hubert Morse MD LAB - PATHOLOGY/CYTOLOGY ORDER MARIAN Final Result DERMATOPATHOLOGY LABORATORY [facility] - Department of Dermatology [address], [address] [phone] documented in this encounter Visit Diagnoses Not on filedocumented in this encounter
--- OUTSIDE RECORDS SUMMARY | 2025-03-29 00:29 | XMS_ITS | Referral Summary ---
Author Organization [facility] Address [address] [place] [phone] Care Team Providers Care Contact Lens Edge Buffer Name Role Phone Mathieu Burch MD Primary Care Provider + [phone] Yefri Anderson NP Unavailable [phone] Tim Reza MD Unavailable [phone] Allergies No known active allergies Medications venlafaxine XR (EFFEXOR-XR) 150 mg 24 hr capsule TAKE 1 CAPSULE BY MOUTH EVERYDAY AT BEDTIME 07/12/2020 Active ARIPiprazole (ABILIFY) 5 mg tablet 10/06/2022 Active Active Problems Problem Noted Date Diagnosed Date Menorrhagia with irregular cycle 10/01/2022 Overview (10/01/2022): Added automatically from request for surgery [id number] Other tear of lateral menisc us, current injury, right knee, initial encounter 07/05/2020 Overview (07/05/2020): Added automatically from request for surgery [id number] Tear of lateral meniscus of right knee, current 06/30/2020 Rupture of anterior cruciate ligament of right k nee 06/30/2020 Social History Tobacco Use Types Packs/Day Years Used Date Smoking Tobacco: Former Cigarettes 0.1 5 2 010 - 2015 Smokeless Tobacco: Never Tobacco Cessation:Counseling Given: Not Answered Alcohol Use Standard Drinks/Week Comments Yes 0 (1 standard drink = 0.6 oz pur e alcohol) AUDIT-C Answer Date Recorded Q1: How often do you have a drink containing alc ohol? 2-3 times a week 11/08/2022 Q2: How many drinks containi ng alcohol do you have on a typical day when you are drinking? 1 or 2 11/08/2022 Q3: How often do you have si x or more drinks on one occasion? Never 11/08/2022 Personal Safety Answer Date Recorded Getting School Help Needed Denies 09/23 Comments No Sex and Gender Information Value Date Recorded Sex Assigned at Not on file Legal Sex Female 8:01 PM PUNCH PRESS OPERATOR HELPER Gender Identity Not on file Sexual Orientation Not on file Last Filed Vital Signs Vital Sign Reading Time Taken Comments Blood Pressure 122/80 12/03/2022 12:43 PM CDT Pulse 62 11/08/2022 1:48 PM PUNCH PRESS OPERATOR HELPER Temperature 36.2 C (97.2 F) 11/08/2022 1:10 PM PUNCH PRESS OPERATOR HELPER Respiratory Rate 16 11/08/2022 1:48 PM PUNCH PRESS OPERATOR HELPER Oxygen Saturation 100% 11/08/2022 1:48 PM PUNCH PRESS OPERATOR HELPER Inhaled Oxygen Concentration - - Weight 79.8 kg (176 lb) 12/03/2022 12:43 PM CDT Height 162.6 cm (5' 4.02) 12/03/2022 12:43 PM C DT Body Mass Index 30.2 12/03/2022 12:43 PM CDT Plan of Treatment Not on file Medical Devices Implanted Type Area Transit Mechanic Device Identifier Shelf Expiration Date Model / Serial / Lot Arthrex Inc Ar-2324bcc Swivelock C 4.75mm 19.1mm Closed Eyelet Vent [place] Suture - [id number] Implanted:Qty: 1 on 07/18/2020 by Jose M Mendiola MD at [facility] Right: Knee Arthrex Inc 03/22/2024 AR-2324BCC / / [id number] Arthrex Inc Ar-4570 Implant Menicus Repair Fiberstitch Curved - [id number] Implanted:Qty: 1 on 07/18/2020 by Jose M Mendiola MD at [facility] Right: Knee [employer] Inc 03/22/2024 AR-4570 / / [id number] Arthrex Inc Ar-1589rt Tightrope 20x5mm Welder Fitter Footprint Large Button Suture - [id number] Implanted:Qty: 1 on 07/18/2020 by Jose M Mendiola MD at [facility] Right: Knee [employer] 04/22/2021 AR-1589RT / / [id number] Lifenet Fgl Flexigraft Graftlink 7.5-10.5mm 60-80mm Frozen Allograft - [id number] - [id number] Implanted:Qty: 1 on 07/18/2020 by Jose M Mendiola MD at [facility] Right: Knee Lifenet 05/26/2023 FGL / [id number] / Ar[employer] [id number] Device Fxatn Tightrope Deploying Suture - [id number] Implanted:Qty: 1 on 07/18/2020 by Jose M Mendiola MD at [facility] Right: Knee [employer] 05/23/2025 AR-1588BTB- J / / [id number] [id number] Tightrope Implanted:Qty: 1 on 07/18/2020 by Jose M Mendiola MD at [facility] Right: Knee Ar[employer]rex Inc [id number] 07/23/2024 AR-1588BTB / NA / [id number] Description:[facility] ITEM # [id number] 3 IS FLAGGED IN SCCS BUT NOT ACTIVE OF 07/19/2020 CHARGE CODE ASSIGNED 047072 375.00 EA Procedures Procedure Name Priority Date/Time Associated Diagnosis Comments PAP AND HIGH RISK HPV, REFLEX TO GENOTYPING Routine 10/01/2022 11:26 AM PUNCH PRESS OPERATOR HELPER Abnormal uterine bleeding from Last 3 Months or Most Recently Relevant to Health Maintenance Results * Pap and High Risk HPV, reflex to Genotyping (10/01/2022 11:26 AM PUNCH PRESS OPERATOR HELPER) Thin prep (Pap test) 10/01/2022 11:26 AM PUNCH PRESS OPERATOR HELPER 10/02/2022 11:26 AM PUNCH PRESS OPERATOR HELPER Narrative PATHOLOGY [facility] - 10/04/2022 12:12 PM PUNCH PRESS OPERATOR HELPER [facility] Department of Pathology [address], [place] [id number] Final Report with Addendum Note to Patients: This report may contain a detailed description of human tissue sent by a health care provider to the laboratory for pathologic evaluation. The content of this report is essential for diagnosis and may provide important critical findings. This information may be unfamiliar to patients to review without a medical professional present. It is advised that the patient review this report in the presence of a health care provider who can answer questions and explain the details. Patient Name: LINDSEY SOUZA Address: [address] [place] [address] Gender: F : 1980 (Age: 42) Service: Location: [facility] : [id number] [facility] #: [id number] Patient Type: [facility] SPECIMEN Taken: 10/01/2022 Received: 10/02/2022 Accessioned:: 10/03/2022 Reported: 10/04/2022 Physician(s): Tim Reza M.D. [facility] Diagnosis: Source of Specimen: SCREENING THIN PREP IMAGED PAP w/ HPV Specimen Adequacy: - Satisfactory for evaluation; endocervical/transformation zone component present General Category: - Negative for intraepithelial lesion or malignancy LAYNE Solomon(ASCP) Report Electronically Reviewed and Signed Out By LAYNE Solomon(ASC) 10/04/2022 12:12:44Addenda: HPV Test Interpretation NEGATIVE for types 16, 18, 31, 33, 35, 39, 45, 51, 52, 56, 58, 59, 66 and 68. Test performed utilizing Gen-Probe Aptima assay. LAYNE Naranjo(ASCP)Report Electronically Reviewed and Signed Out By ANTOLIN NaranjoASC) 10/04/2022 10:19:27 Specimen(s) Received: A: SCREENING THIN PREP IMAGED PAP w/ HPV Clinical History: Last Menstrual Period: 09/21/2022 The Pap test is a screening test used to aid in the detection of cervical cancer and its precursors. It should not be the sole means by which malignant and premalignant lesions are diagnosed. Both false negative and false positive results may occur. It also has poor sensitivity for the detection of endometrial lesions and should not be used to evaluate suspected endometrial abnormalities. For these reasons it is most important to obtain Pap tests at regular intervals. The performance characteristics of some immunohistochemical stains, fluorescence in-situ hybridization tests and immunophenotyping by flow cytometry cited in this report (if any) were determined by the Surgical Pathology Department at [facility] as part of an ongoing clinical quality manager program and in compliance with federally mandated regulations drawn from the Clinical Laboratory Improvement Act of 1988 (CLIA '88). Some of these tests rely on the use of analyte specific reagents and are subject to specific labeling requirements by the US Food and Drug Administration. Such diagnostic tests may only be performed in a facility that is certified by the Department of Health and Human Services as a high complexity laboratory under CLIA '88. The FDA has determined that such clearance or approval is not necessary. This test is used for clinical purposes. It should not be regarded as investigational or for research. Nevertheless, federal rules concerning the medical use of analyte specific reagents require that the following disclaimer be attached to the report: This test was developed and its performance characteristics determined by the Surgical Pathology Department [facility]. It has not been cleared or approved by the U. S. Food and Drug Administration. Tim Reza MD LAB CYTOLOGY ORDERABLES Final Result Performing Organization Address City/State/[facility] Co de Phone Number PATHOLOGY [facility] from Last 3 Months or Most Recently Relevant to Health Maintenance Insurance [facility] [place] [address] [facility] CHO[employer] PL[employer] Care Teams Contact Lens Edge Buffer Relationship Specialty Start Date End Date Mathieu Burch MD [address] [place] [address] PCP - General Family Medicine 10/27/19 Yefri Anderson NP [address] [place] [address] Nurse Practitioner Nurse Practitioner 07/18/20 Tim Reza MD [address] [place] [address] Consulting Physician Obstetrics and Gynecology 11/08/22
--- OUTSIDE RECORDS SUMMARY | 2025-03-29 00:29 | XMS_ITS | Patient Health Record ---
Author Organization [facility] Address [address] [place] [address] Care Team Providers Care Lighting Technician Name Role Phone Derek Veras Primary Care Provider Allergies No Known Allergies Reason For Referral No Information Medications Medication SIG (Take, Route, Frequency, Duration) Notes Start Date End Date Status Abilify 5 MG 1 tablet Orally Once a day, in AM; Duration: 30 day(s) Active Venlafaxine HCl ER 150 MG 1 capsule with food Orally at night; Duration: 30 day(s) Active Social History Tobacco Use: Social History Observation Description Date Details (start date - stop date) Former Smoker NA - NA Sex Assigned At : Social History Observation Description Sex Assigned At Female Dont use, Tobacco Use/Smoking Question Answer Notes Are you a former smoker Problems Problem Type SNOMED Code ICD Code Onset Dates Problem Status W/U Status Risk Notes Problem Moderate recurrent major depression (63166899) Major depressive disorder, recurrent, moderate (F33.1) Active confirmed Problem Posttraumatic stress disorder (66651768) Post traumatic stress disorder (PTSD) (F43.10) Active confirmed Problem Premenstrual dysphoric disorder (542504) Premenstrual dysphoric disorder (F32.81) Active confirmed Plan Of Treatment No Information Insurance Providers Payer Name Payer Address Payer Phone Subscriber Number Group Number Insured Name Patient Relationship to Insured Coverage Start Date Coverage End Date [facility] [id number] [place] [phone] [id number] SulaimanPriyanka doshi Self - patient is the insured 1 Medical (General) History Surgical History Surgery Date(Month/Year)
--- OUTSIDE RECORDS SUMMARY | 2025-03-29 00:29 | XMS_ITS | Encounter Summary ---
Author Organization [facility] Address [address] [place] [place] [address] Care Team Providers Care Esthetics Instructor Name Role Phone Unavailable Primary Care Provider Unavailabl e Encounter Details Date Type Department Care Team (Late st Contact Info) Description 11/04/2020 Lab Requisition [facility] DermPath Lab [address] [facility] [facility] [place] [id number] Hubert Morse MD [address] [place] [address] Social History Tobacco Use Types [...] Priority Date/Time Associated Diagnosis Comments DERMATOPATHOLOGY Routine 11/03/2020 3:33 AM ADULT DAY CARE WORKER documented in this encounter Results * DERMATOPATHOLOGY (11/03/2020 3:33 AM ADULT DAY CARE WORKER) Case Report Dermatopathology Report Case: [id number] Authorizing Provider: Hubert Morse MD Collected: 11/03/2020 03:33 AM Ordering Location: [facility] DermPath Lab Received: 11/04/2020 06:50 AM Pathologist: Michelle Omer MD Specimen: Skin, right nose tip 12:39 PM [facility] DERMATOP[facility]OLOGY [facility] Final Diagnosis Specimen A. SKIN, right nose tip: ANGIOFIBROMA (FIBROUS PAPULE) (D21.0) (see microscopic description) 12:39 PM [facility] DERMATOPATHOLOGY [facility]ORAT[facility] at 1239 ADULT DAY CARE WORKER Clinical History Folliculitis vs BCCA. Path # [id number]. 12:39 PM [facility] DERMATOP[facility] Gross Description Specimen A: Received is one formalin filled container labeled with the patient's name and designated right nose tip. The specimen consists of a shave biopsy measuring 4x0o2cv. Jar 0. 12:39 PM [facility] DERMATOP[facility] Microscopic Description Specimen A. SKIN, right nose tip: This dome-shaped lesion contains dilated blood vessels, coarse collagen bundles, and stellate fibroblasts. There is no evidence of epithelial dysplasia or malignancy in the sections examined. 12:39 PM [facility] DERMATOP[facility] Disclaimer An external and internal positive and negative controls are appropriate for the histochemical, immunohistochemical and immunofluorescence stain(s) in this case (if any), except where stated explicitly. The performance characteristics of the stain(s) cited in this report were developed and its performance characteristic determined by the Dermatopathology Laboratory at [facility], directed by Dr. García Adamson. These tests need not be, and therefore are not, approved by the [place] Food and Drug Administration. The tests are used for clinical purposes. Billing Codes Specimen Charges Stain Charges 29457 1 12:39 PM [facility] Embedded Images 12:39 PM [facility] Pathology/Cytolo gy TISSUE SPECIMEN FROM SKIN / Unknown 11/03/2020 3:33 AM ADULT DAY CARE WORKER 11/04/2020 6:50 AM ADULT DAY CARE WORKER us Hubert Morse MD LAB - PATHOLOGY/CYTOLOGY ORDER MARIAN Final Result DERMATOPATHOLOGY LABORATORY [facility] - Department of Dermatology [address], [address] [phone] documented in this encounter Visit Diagnoses Not on filedocumented in this encounter
--- OUTSIDE RECORDS SUMMARY | 2025-03-29 00:29 | XMS_ITS | Clinical Summary ---
Author Organization [facility] 8 [facility] Address [address] [place] [address] Care Team Providers Care Corporate Pilot Name Role Phone Mathieu Burch MD Primary Care Provider [phone] Yefri Anderson NP Unavailable [phone] Tim Reza MD Unavailable [phone] Allergies No known active allergies Medications venlafaxine XR (EFFEXOR-XR) 150 mg 24 hr capsule TAKE 1 CAPSULE BY MOUTH EVERYDAY AT BEDTIME 07/12/2020 Active ARIPiprazole (ABILIFY) 5 mg tablet 10/06/2022 Active Active Problems Problem Noted Date Diagnosed Date Menorrhagia with irregular cycle 10/01/2022 Overview (10/01/2022): Added automatically from request for surgery [id number] Other tear of lateral menisc us, current injury, right knee, initial encounter 07/05/2020 Overview (07/05/2020): Added automatically from request for surgery [id number] Tear of lateral meniscus of right knee, current 06/30/2020 Rupture of anterior cruciate ligament of right k nee 06/30/2020 Surgical History Surgery Date Site/Laterality Comments LITHOTRIPSY 09/23/2000 - 09/22/2001 rt kidney BLADDER REPAIR 09/23/2015 - 09/22/2016 KNEE ARTHROSCOPY 06/23/2020 - 07/23/2020 ACL replacement, [facility] CERVICAL BIOPSY W/ LOOP ELECTRODE EXCISION 09/23/2003 - 09/22/2004 VAGINAL DELIVERY three deliveries, two live children @ this time DILATION AND CURETTAGE OF UTERUS HYSTEROSCOPY Medical History Medical History Date Comments Depression Heavy menses lasting 14-18 da ys at times Last menstrual period (LMP) > 10 days ago 2022 History of nephrolithiasis 2000 litho Pediatric asthma patient states outgrew this, denies problems now Dysmenorrhea Family History Medical History Relation Name Comments Breast cancer Neg Hx Ovarian cancer Neg Hx Social History Tobacco Use Types Packs/Day Years Used Date Smoking Tobacco: Former Cigarettes 0.1 5 2 010 - 2014 Smokeless Tobacco: Never Tobacco Cessation:Counseling Given: Not [...] on file Legal Sex Female 8:01 PM AUTOMOBILES SALESPERSON Gender Identity Not on file Sexual Orientation Not on file Obstetrics History Para Term AB IAB SAB Ectopic Multiple Livin g Live Births 5 3 Date Outcome GA Total Labor Labor/2nd/3rd Weight Sex Type Anes PTL [place] A1 A5 Name Clin Para Para Para Last Filed Vital Signs Vital Sign Reading Time Taken Comments Blood Pressure 122/80 12/03/2022 12:43 PM CDT Pulse 62 11/08/2022 1:48 PM AUTOMOBILES SALESPERSON Temperature 36.2 C (97.2 F) 11/08/2022 1:10 PM AUTOMOBILES SALESPERSON Respiratory Rate 16 11/08/2022 1:48 PM AUTOMOBILES SALESPERSON Oxygen Saturation 100% 11/08/2022 1:48 PM AUTOMOBILES SALESPERSON Inhaled Oxygen Concentration - - Weight 79.8 kg (176 lb) 12/03/2022 12:43 PM CDT Height 162.6 cm (5' 4.02) 12/03/2022 12:43 PM C DT Body Mass Index 30.2 12/03/2022 12:43 PM CDT Plan of Treatment Health Maintenance Due Date Last Done Comments Breast Cancer Screening-Mammogram 1980 Colon Cancer Screening-Colonoscopy 1980 Depression Screening 1980 Hepatitis C Screening 1980 DTaP/Tdap/Td Vaccine (1 - Tdap) 1989 Hepatitis B Screening 01/16/1996 Regular Well Visit/Exam 18-64 01/16/1996 Cervical Cancer Screening 10/01/2023 10/01/2022 Covid-19 Vaccine (2023-2 5 season) 2024 09/28/2021, 01/12/2021, 12/22/2020 Influenza Vaccine (Season Ended) 2025 Pneumococcal vaccine <65 Aged Out No longer eligible based on patient's age to complete this topic Medical Devices Implanted Type Area Case Sealer Device Identifier Shelf Expiration Date Model / Serial / Lot [employer] Ar-2324bcc Swivelock C 4.75mm 19.1mm Closed Eyelet Vent [place] Suture - [id number] Implanted:Qty: 1 on 07/18/2020 by Jose M Mendiola MD at [facility] Right: Knee [employer] 03/22/2024 AR-2324BCC / / [id number] [employer] Ar-4570 Implant Menicus Repair Fiberstitch Curved - [id number] Implanted:Qty: 1 on 07/18/2020 by Jose M Mendiola MD at [facility] Right: Knee [employer] 03/22/2024 AR-4570 / / [id number] [employer] Ar-1589rt Tightrope 20x5mm Landscape Artist Footprint Large Button Suture - [id number] Implanted:Qty: 1 on 07/18/2020 by Jose M Mendiola MD at [facility] Right: Knee [employer] 04/22/2021 AR-1589RT / / [id number] Lifenet Fgl Flexigraft Graftlink 7.5-10.5mm 60-80mm Frozen Allograft - [id number] - [id number] Implanted:Qty: 1 on 07/18/2020 by Jose M Mendiola MD at [facility] Right: Knee Lifenet 05/26/2023 [facility] / [id number] / [employer] [id number] Device Fxatn Tightrope Deploying Suture - [id number] Implanted:Qty: 1 on 07/18/2020 by Jose M Mendiola MD at [facility] Right: Knee [employer] 05/23/2025 AR-1588BTB- J / / [id number] [id number] Tightrope Implanted:Qty: 1 on 07/18/2020 by Jose M Mendiola MD at [facility] Right: Knee [employer] C1713 07/23/2024 AR-1588BTB / NA / [id number] Description:[facility] ITEM # [id number] 3 IS FLAGGED IN SCCS BUT NOT ACTIVE OF 07/19/2020 CHARGE CODE ASSIGNED [id number] 375.00 EA Procedures Procedure Name Priority Date/Time Associated Diagnosis Comments PAP AND HIGH RISK HPV, REFLEX TO GENOTYPING Routine 10/01/2022 11:26 AM AUTOMOBILES SALESPERSON Abnormal uterine bleeding from Last 3 Months or Most Recently Relevant to Health Maintenance Results * Pap and High Risk HPV, reflex to Genotyping (10/01/2022 11:26 AM AUTOMOBILES SALESPERSON) Thin prep (Pap test) 10/01/2022 11:26 AM AUTOMOBILES SALESPERSON 10/02/2022 11:26 AM AUTOMOBILES SALESPERSON Narrative PATHOLOGY [facility] - 10/04/2022 12:12 PM AUTOMOBILES SALESPERSON [facility] Department of Pathology [address] [place] [id number] Final Report with Addendum Note to Patients: [...] the details. Patient Name: LINDSEY SOUZA Address: [address] [place] [address] , [place] [address] Gender: F : 1980 (Age: 42) Service: Location: [facility] #: [id number] Patient Type: [facility] SPECIMEN Taken: 10/01/2022 Received: 10/02/2022 Accessioned:: 10/03/2022 Reported: 10/04/2022 Physician(s): Tim Reza M.D. [facility] Diagnosis: Source of Specimen: SCREENING THIN PREP [...] Naranjo(ASCP)Report Electronically Reviewed and Signed Out By LAYNE Naranjo(ASC) 10/04/2022 10:19:27 Specimen(s) Received: A: SCREENING THIN [...] determined by the Surgical Pathology Department at [facility] as part of an ongoing senior quality methods specialist program and in compliance with federally mandated [...] characteristics determined by the Surgical Pathology Department [facility]. It has not been cleared or approved by the U. S. Food and Drug Administration. Tim Reza MD LAB CYTOLOGY ORDERABLES Final Result PATHOLOGY [facility] from Last 3 Months or Most Recently Relevant to Health Maintenance Insurance ISMAEL TAFOYA [address] [facility] [address] [address] [place] [address] [facility] CHO[facility] PLUS Care Teams Corporate Pilot Relationship Specialty Start Date End Date Mathieu Burch MD [address] [place] [address] PCP - General Family Medicine 10/27/19 Yefri Anderson NP [address] [place] [address] Nurse Practitioner Nurse Practitioner 07/18/20 Tim Reza MD [address] [place] [address] Consulting Physician Obstetrics and Gynecology 11/08/22
[2025-03-29 11:21] VITALS: BP 136/102; PULSE 101; RESP 18; TEMP 36.6; O2SAT 99; BMI 27.3
[2025-03-29 11:26] LABS: BEDSIDEPREGUCG Negative (Negative)
[2025-03-29] MEDS: LACTATED RINGERS 1,000 ML 150 ML IV CONT (11:31)
--- NOTE | 2025-03-29 11:32 | P.PNAN_ITS ---
Anes - Initial Pre Proc Eval Procedure: Operation Date: 03/29/25 12:30 Proposed Procedures p Screening Colonoscopy - Chris Tello MD Date/Time: 03/29/25 11:32 Surgeon: Chris Tello MD Pre Op Diagnosis: Screening Patient Data Age: 45 Gender: F Height: 1.63 m Weight: 72.3 kg Last Vital Signs Temp 98 F 03/29/25 11:21 Pulse 101 H 03/29/25 11:21 Resp 18 03/29/25 11:21 BP 136/102 H 03/29/25 11:21 Pulse Ox 99 03/29/25 11:21 O2 Del Method Room Air 03/29/25 11:21 Allergies Allergy/AdvReac Type Severity Reaction Status Date / Time adhesive tape Allergy Mild Hives Verified 03/29/25 11:17 Home Medications ?Medication ?Instructions ?Recorded ?Confirmed ?Type desvenlafaxine succinate 100 mg 150 mg PO DAILY 10/03/19 03/05/25 History tablet,extended release 24 hr fluticasone propionate 50 1 spray intranasal Q12H #18.2 mL 10/03/19 03/05/25 Rx mcg/actuation nasal spray,suspension (Flonase Allergy Relief) meclizine 25 mg tablet 25 mg PO TID PRN dizziness #30 tabs 10/03/19 03/05/25 Rx methylphenidate HCl 27 mg 36 mg PO DAILY 03/05/25 03/05/25 History tablet,extended release 24 hr Laboratory Tests 03/29/25 11:21 POC Urine HCG, Qual Negative (Negative) Patient hx anesthesia problems: none Family hx anesthesia problems: none Results Review: All pre-operative results and documents have been reviewed as part of the pre- operative evaluation. [facility] Past Medical History Medical History (Updated 10/04/19 @ 00:00 by Jasiel Oliva) depression Kidney stones Hx LEEP (loop electrosurgical excision procedure), cervix, Family History Family History Mother Depression Father Family history of gout Patient's father is in good health Other Family history of elevated blood lipids Hypertension Social History Social History Smoking status: Former smoker Tobacco type: cigarettes Alcohol intake: current Alcohol use details: occasional Substance use type: marijuana Living arrangements: with family Hermelindo Hawk Final PreProcedure Day of Procedure 03/29/25 11:32 Patient weight: normal Heart: regular rate and rhythm Lungs: clear to auscultation Airway: Mallampati scale class II Neurological: alert and oriented Last oral intake: >/= 8 hours ASA classification: II Emergent: no Anesthetic plan: proceed Anesthesia type and monitoring: general GIVS and standard monitoring Results Review: All pre-operative results and documents have been reviewed as part of the pre- operative evaluation. Informed Consent: The patient's anesthetic plan and its attendant risks and benefits were discussed with the patient/family/POA. Questions were solicited and answers provided to the satisfaction of the patient/family/POA.
--- NOTE | 2025-03-29 11:54 | PM.IMHP ---
H&P: HPI History of Present Illness Date/Time: 03/29/25 11:54 Chief Complaint: screening colonoscopy Narrative: This is the patient's first colonoscopy. There are no GI symptoms and there is no family history of colorectal cancer. Review of Systems Review of Systems: All systems reviewed & are unremarkable except as noted in HPI and below PMFSH Past Medical History Medical History (Updated 03/29/25 @ 11:55 by Chris Tello MD) depression Kidney stones Hx LEEP (loop electrosurgical excision procedure), cervix, Family History Family History Mother Depression Father Family history of gout Patient's father is in good health Other Family history of elevated blood lipids Hypertension Social History Social History Smoking status: Former smoker Tobacco type: cigarettes Alcohol intake: current Alcohol use details: occasional Substance use type: marijuana Living arrangements: with family Meds Home Medications and Allergies Home Medications ?Medication ?Instructions ?Recorded ?Confirmed ?Type desvenlafaxine succinate 100 mg 150 mg PO DAILY 10/03/19 03/05/25 History tablet,extended release 24 hr fluticasone propionate 50 1 spray intranasal Q12H #18.2 mL 10/03/19 03/05/25 Rx mcg/actuation nasal spray,suspension (Flonase Allergy Relief) meclizine 25 mg tablet 25 mg PO TID PRN dizziness #30 tabs 10/03/19 03/05/25 Rx methylphenidate HCl 27 mg 36 mg PO DAILY 03/05/25 03/05/25 History tablet,extended release 24 hr Allergies Allergy/AdvReac Type Severity Reaction Status Date / Time adhesive tape Allergy Mild Hives Verified 03/29/25 11:17 Vital Signs Vital Signs - 24 hr 03/29/25 11:21 Temperature 98 F Pulse Rate 101 H Respiratory Rate 18 Blood Pressure 136/102 H Pulse Oximetry 99 Oxygen Delivery Room Air Exam Const: General: cooperative and healthy appearing Resp: Effort & Inspection: normal respiratory effort and able to speak in complete sentences Auscultation: clear to auscultation bilaterally Cardio: Rate: regular rate Rhythm: regular rhythm GI: Inspection: normal to inspection GI Palp: No No hepatosplenomegaly present Auscultation: normal bowel sounds Rectal Exam: deferred Skin: General skin exam: normal color Psych: Appearance: grossly normal Mental Status: mental status grossly normal Assessment and Plan Assessment and plan (1) Encounter for screening colonoscopy: Code(s): Z12.11 - Encounter for screening for malignant neoplasm of colon Status: Acute Assessment and Plan: The patient is deemed a good candidate for the procedure. Consent signed. Will proceed.
[2025-03-29 12:10] VITALS: BP 108/77; PULSE 90; RESP 23; O2SAT 98
[2025-03-29 12:20] VITALS: BP 104/70; PULSE 84; RESP 21; O2SAT 100
[2025-03-29 12:30] VITALS: BP 120/92; PULSE 78; RESP 18; O2SAT 100
== END 2025-03-29 12:51 | disposition home or self-care (01) ==
PROVIDERS: Anesthesiology; PCP Emergency Medicine; Referring Provider Emergency Medicine; Visit Provider Internal Medicine Gastroenterology
PROC: 0DJD8ZZ Inspection of Lower Intestinal Tract, Via Natural or Artificial Opening Endoscopic (ICD-10-PCS; CPT 45378; principal; 2025-03-29 12:30)
DX: Z12.11 Encounter for screening for malignant neoplasm of colon (principal); K64.8 Other hemorrhoids; F12.90 Cannabis use, unspecified, uncomplicated; Z87.442 Personal history of urinary calculi; Z87.891 Personal history of nicotine dependence
CPT/HCPCS: 45378; J2003; J2704; J7120

== ENCOUNTER 2025-08-04 12:20 | Outpatient (CLI) | payer OTHER, SELFPAY ==
--- NOTE | ~2025-08-04 | MM_ITS ---
EXAMINATION: MM screening [facility] BI w sherri HISTORY: Screening TECHNIQUE: Craniocaudal and mediolateral oblique 3-D tomosynthesis images were obtained and synthetic 2-D images were generated. CAD analysis was submitted and interpreted. COMPARISON: Comparison to multiple prior studies sequentially, with oldest reviewed study dated 09/25/2022. BREAST PARENCHYMAL COMPOSITION: Not dense: There are scattered areas of fibroglandular density. FINDINGS: There is no evidence of suspicious mass, calcification, or architectural distortion to suggest malignancy in either breast. There has been no suspicious interval change. IMPRESSION: 1. No mammographic evidence of malignancy. 2. Recommend routine screening mammography in one year. BI-RADS Category 1: Negative Reviewed, dictated and finalized at location B. PASTOR
== END 2025-08-04 12:21 | disposition home or self-care (01) ==
LOC: MICIMG 12:21
PROVIDERS: PCP Emergency Medicine; Visit Provider Emergency Medicine
DX: Z12.31 Encounter for screening mammogram for malignant neoplasm of breast (principal)
CPT/HCPCS: 77063; 77067